=== PATIENT | male | born 1985 | race Hispanic/Latino ===

== ENCOUNTER 2018-03-15 23:45 | Emergency (ER) | payer OTHER ==
[2018-03-16 00:15] VITALS: BP 152/91; PULSE 100; RESP 17; TEMP 98.9; O2SAT 98
[2018-03-16] MEDS ORDERED: Lidocaine 1% (10 ml) Inj INFIL ONE (00:16)
[2018-03-16] MEDS ORDERED: Tdap Vaccine 0.5 ml Vial (10-64 yrs) IM ONE ×2 (00:16→00:34)
[2018-03-16] MEDS ORDERED: Lidocaine 1% Inj (20ml) ONE (00:34)
[2018-03-16] MEDS ORDERED: Povidone Iodine Topical 10% Sol ONE (00:35)
--- NOTE | 2018-03-16 01:32 | ED PDOC ---
Upper Extremity Pain/Injury Time Seen by Provider: 03/16/18 00:03 Chief Complaint (Nursing): Abnormal Skin Integrity History Per: Patient Additional Complaint(s): Pt. states earlier today while at work his L 2nd digit was crushed in between 2 metal objects sustaining a laceration. Denies numbness, tingling, other injury. Tetanus status is unknown. Past Medical History Reviewed: Historical Data, Nursing Documentation, Vital Signs Vital Signs: Last Vital Signs Temp 98.9 F 03/16/18 00:01 Pulse 100 H 03/16/18 00:01 Resp 17 03/16/18 00:01 BP 152/91 H 03/16/18 00:01 Pulse Ox 98 03/16/18 00:01 - Surgical History Surgical History: No Surg Hx - Family History Family History: States: No Known Family Hx - Allergies Allergies/Adverse Reactions: Allergies Allergy/AdvReac Type Severity Reaction Status Date / Time No Known Allergies Allergy Verified 03/16/18 00:15 Review of Systems ROS Statement: Except As Marked, All Systems Reviewed And Found Negative Physical Exam - Physical Exam Appears: Positive for: Well, Non-toxic, No Acute Distress Skin: Positive for: Normal Color, Warm. Negative for: Rash Pulses-Radial (L): 2+ Pulses-Radial (R): 2+ Extremity: Positive for: Normal ROM (L 2nd digit with FROM actively of entire finger), Capillary Refill (< 2 seconds of L 2nd digit), Other (L 2nd digit at medial aspect if PIP with L shaped 1.5cm jagged laceration without active bleeding or deep structure involvement) Neurologic/Psych: Positive for: Alert, Oriented (x3), Other (distal sensation intact of L 2nd digit) - ECG O2 Sat by Pulse Oximetry: 98 - Progress ED Course And Treament: Tetanus prophylaxis administered. Ultram PO, L 2nd digit x-rays ordered. Procedures - Time-Out Type of Procedure: laceration repair Site of Procedure: L 2nd digit Correct Patient: Yes Correct Procedure: Yes Correct Site Marked: Yes X-Ray Marked: Yes PA/Tech: Jimenez HAMMOND - Laceration/Wound Repair laceration repair Wound Length (cm): 1.5 Wound's Depth, Shape: superficial, irregular Wound Explored: clean Irrigated w/ Saline (ccs): 100 Betadine Prep?: Yes Anesthesia: 1% Lidocaine Volume Anesthetic (ccs): 3 Wound Repaired With: Sutures Suture Size/Type: 5:0, proline Number of Sutures: 7 Wound Complexity: Intermediate Sterile Dressing Applied?: Yes Splint Applied?: Yes Type of Splint Applied: aluminum finger splint Disposition - Clinical Impression Clinical Impression: Finger laceration - Patient ED Disposition Is Patient to be Admitted: No - Disposition Referrals: [facility] [place] [Outside] Disposition: Routine/Home Disposition Time: 01:30 Condition: STABLE Additional Instructions: SUTURE REMOVAL IN 10-14 DAYS FOLLOW UP WITH YOUR DOCTOR FOR FURTHER EVALUATION RETURN TO ED IMMEDIATELY FOR ANY CONCERNS OR QUESTIONS OWEN ARROYO, thank you for letting us take care of you today. Your provider was Erwin Francisco MD and you were treated for LT FINGER LACERATION. The emergency medical care you received today was directed at your acute symptoms. If you were prescribed any medication, please fill it and take as directed. It may take several days for your symptoms to resolve. Return to the Emergency Department if your symptoms worsen, do not improve, or if you have any other problems. Please contact your doctor or call one of the physicians/clinics you have been referred to that are listed on the Patient Visit Information form that is included in your discharge packet. Bring any paperwork you were given at discharge with you along with any medications you are taking to your follow up visit. Our treatment cannot replace ongoing medical care by a primary care provider outside of the emergency department. Thank you for allowing the [facility] team to be part of your care today. If you had an X-Ray or CT scan: A Radiologist will review the ED reading if any change in treatment is needed we will contact you. If you had a blood, urine, or wound culture: It will take several days for the results, if any change in treatment is needed we will contact you. If you had an STI test: It will take 48 hours for the results. Please call after 1 week if you have not heard back. Instructions: Laceration Repair With Stitches (DC) Forms: [facility] (Chinese), [facility] ED School/Work Excuse
[2018-03-16] MEDS ORDERED: Lidocaine 1% Inj (20ml) IJ ONE (02:06)
--- NOTE | 2018-03-16 12:39 | RAD ---
Date of service: 03/16/2018 PROCEDURE: Left Index finger radiographs. HISTORY: trauma COMPARISON: None. TECHNIQUE: AP radiograph of the left hand, as well as spot oblique and lateral images of index finger were obtained. FINDINGS: LEFT INDEX FINGER: Normal left index finger, without fracture or focal lesion. Remainder of the left hand (as seen on the AP view) grossly intact. JOINTS: Normal. SOFT TISSUES: There appears to be disruption-laceration of the palmar soft tissues at the level of the PIP joint second digit. No radiopaque foreign bodies.. OTHER FINDINGS: None. IMPRESSION: No evidence of acute displaced fracture nor dislocation. Apparent disruption/laceration palmar soft tissues level of the PIP joint of the 2nd digit.
== END 2018-03-16 02:12 | disposition home or self-care (01) ==
LOC: H.ER 23:45
DX: S61.211A Laceration without foreign body of left index finger without damage to nail, initial encounter (principal); W23.0XXA Caught, crushed, jammed, or pinched between moving objects, initial encounter; Y99.0 Civilian activity done for income or pay